=== PATIENT | female | born 1975 | race Two or more races ===

== ENCOUNTER → 2018-07-03 | Outpatient (CLI) | payer OTHER ==
[~2018-07-03] MED LIST: IOPAMIDOL (ISOVUE-370) 150 ML BTL IV ONE
== END ==
LOC: CIMAGING 09:20
PROVIDERS: ATTEND Family Medicine
DX: R10.13 Epigastric pain (principal); I77.1 Stricture of artery
CPT/HCPCS: 74160-PO; Q9967